=== PATIENT | male | born 1955 | race Caucasian/White ===

== ENCOUNTER 2018-03-15 09:47 | Inpatient (IN) | payer MEDICAID ==
[~2018-03-15] VITALS: Ht 172.7 cm; Wt 95.3 kg
[2018-03-15 09:48] VITALS: BP 218/88
[2018-03-15] MEDS ORDERED: APAP650 PO (09:55)
[2018-03-15] MEDS ORDERED: ASPIRIN325 PO (09:56)
[2018-03-15] MEDS ORDERED: ATENOLOL 50MG T50 M1 PO (09:56)
[2018-03-15] MEDS ORDERED: LIPITOR40 MG PO (09:56)
[2018-03-15] MEDS ORDERED: COLACE100 MG PO (09:57)
[2018-03-15] MEDS ORDERED: PLAVIX 75 MG TA75 M1 PO (09:57)
[2018-03-15] MEDS ORDERED: IMDUR 60 MG TAB60 M1 PO (09:58)
[2018-03-15] MEDS ORDERED: LISINOPRIL20 MG PO (09:58)
[2018-03-15] MEDS ORDERED: CYMBALTA30 MG PO (09:58)
[2018-03-15 11:16] LABS: ABSOLUTE BASOPHILS 0.2 thou/uL (0.0-0.2); ABSOLUTE EOSINOPHILS 0.1 thou/uL (0.0-0.7); ABSOLUTE LYMPHOCYTES 2.5 thou/uL (0.8-5.3); ABSOLUTE MONOCYTES 0.6 thou/uL (0.0-1.2); ABSOLUTE NEUTROPHILS 8.5 thou/uL (1.6-8.1); BASOPHILS 1.3 %; EOSINOPHILS 1.1 %; HEMATOCRIT 42.8 % (42.0-52.0); HEMOGLOBIN 14.4 gm/dL (14.0-18.0); LYMPHOCYTES 20.9 %; MCH 28.1 pg (26.0-34.0); MCHC 33.6 g/dL (28.0-37.0); MCV 83.5 fL (80.0-100.0); MONOCYTES 5.3 %; MPV 7.6 fl. (7.2-11.1); NUCLEATED RBCS 0 /100WBC; PLATELET COUNT* 326 thou/uL (150-400); POLYS 71.4 %; RBC 5.13 mil/uL (4.50-6.00); RDW-CV 14.8 % (10.5-14.5)
[2018-03-15 11:26] LABS: ANION GAP 8 mmol/L (7-16); BUN 16 mg/dL (7-18); CALCIUM 8.7 mg/dL (8.5-10.1); CHLORIDE 105 mmol/L (98-107); CO2 30 mmol/L (21-32); CREATININE 0.8 mg/dL (0.6-1.3); GLUCOSE 99 mg/dL (70-99); POTASSIUM 3.8 mmol/L (3.5-5.1); SODIUM 143 mmol/L (136-145)
[2018-03-15 11:37] LABS: ALBUMIN 3.1 g/dL (3.4-5.0); ALKALINE PHOSPHATASE 75 U/L (46-116); NT-PRO BRAIN NAT PEPTIDE 613 pg/mL (<300); SGOT 16 U/L (15-37); SGPT 31 U/L (30-65); TOTAL BILIRUBIN 0.5 mg/dL (<0.1-1.0); TOTAL PROTEIN 7.7 g/dL (6.4-8.2); TROPONIN-I LEVEL <0.06 ng/mL (<0.06)
[2018-03-15 12:49] LABS: URINE BILIRUBIN NEGATIVE (Negative); URINE BLOOD NEGATIVE (Negative); URINE CLARITY CLEAR; URINE COLOR YELLOW; URINE GLUCOSE-RANDOM NEGATIVE (Negative); URINE KETONES NEGATIVE (Negative); URINE LEUKOCYTES-REFLEX NEGATIVE (Negative); URINE NITRITE-REFLEX NEGATIVE (Negative); URINE PROTEIN NEGATIVE (Negative); URINE UROBILINOGEN 0.2 E.U./dl (0.2-1.0)
[2018-03-15 12:53] LABS: AMP/METHAMP Negative (Negative); BARBITURATES Negative (Negative); BENZODIAZEPINES Negative (Negative); COCAINE Negative (Negative); METHADONE Negative (Negative); OPIATES Negative (Negative); PCP Negative (Negative); THC POSITIVE (Negative)
[2018-03-15 14:00] VITALS: BP 128/70
[2018-03-15 14:10] VITALS: BP 154/84
[2018-03-15 20:00] VITALS: BP 125/71
[2018-03-16] VITALS: BP 148/85
[2018-03-16 04:00] VITALS: BP 137/71
[2018-03-16 07:55] VITALS: BP 141/74
[2018-03-16 08:15] LABS: HEMATOCRIT 38.5 % (42.0-52.0); HEMOGLOBIN 12.8 gm/dL (14.0-18.0); MCH 27.9 pg (26.0-34.0); MCHC 33.2 g/dL (28.0-37.0); MPV 7.5 fl. (7.2-11.1); RBC 4.58 mil/uL (4.50-6.00); RDW-CV 14.7 % (10.5-14.5); WBC 12.4 thou/uL (4.0-11.0)
[2018-03-16 08:18] LABS: ALBUMIN 2.6 g/dL (3.4-5.0); CALCIUM 8.3 mg/dL (8.5-10.1); CREATININE 0.8 mg/dL (0.6-1.3); POTASSIUM 3.8 mmol/L (3.5-5.1); TOTAL BILIRUBIN 0.7 mg/dL (<0.1-1.0); TOTAL PROTEIN 6.5 g/dL (6.4-8.2)
--- NOTE | 2018-03-16 15:52 | EKG ---
[place] [address] ELECTROCARDIOGRAM REPORT Name: KRYSTIAN ALEXANDRE Room: [address] IN [facility].#: [id number] Admission: 03/15/18 Attend Phys: Diony Burgess, Discharge: Date of : 57 Report #: [id number] THIS REPORT FOR: //name// [facility] ED Test Date: 2018-03-15 Test Time: 09:53:35 Pat Name: KRYSTIAN ALEXANDRE Department: Room: Gender: [employer] Instructor: Demetria OROSCO : 1955 Requested By: Anisha Lemus Order Number: [id number] MD: Oscar Kamara Measurements Intervals [place] Rate: 53 P: 3 OK: 173 QRS: -42 QRSD: 112 T: 150 QT: 460 QTc: 432 Interpretive Statements Sinus rhythm Abnormal R-wave progression, late transition Nonspecific T-wave abnormality No previous ECG available for comparison Electronically Signed On 03-16-2018 15:52:03 CDT by Oscar Kamara [email or web address] <ELECTRONICALLY SIGNED> By: Oscar Kamara MD, [facility] 03/16/18 [id number] Oscar Kamara MD, [facility] /EPI
[2018-03-16 16:00] VITALS: BP 152/75
[2018-03-16 20:15] VITALS: BP 151/86
[2018-03-17] VITALS: BP 170/78
[2018-03-17 03:31] VITALS: BP 170/82
[2018-03-17 08:00] VITALS: BP 186/98
[2018-03-17 11:00] VITALS: BP 149/90
[2018-03-17 20:09] VITALS: BP 160/75
--- NOTE | 2018-03-17 20:24 | CON ---
[address] [address] CONSULTATION Name: KRYSTIAN ALEXANDRE Room: [address] [place] [id number] Admission: 03/15/18 Attend Phys: Diony Burgess, Discharge: Date of : 57 Report #: [id number] THIS REPORT FOR: //name// CC: LUCY physician/PCP Diony Burgess DATE OF SERVICE: 03/16/2018 HISTORY OF PRESENT ILLNESS: This is a 62-year-old male patient who had a prior history of stroke. Rest of the history is not clear. He said he was not feeling well, that is why he was admitted to the hospital. The record indicates that he had some chest congestion, shortness of breath, dizziness for which he was admitted. He does not know why he was admitted. He does not think he had a stroke. He did have a stroke in the past. Apparently, his symptoms were severe, but he has calmed down since that. Symptoms happened spontaneously without any trauma. He lives with his daughter and daughter is not available. REVIEW OF SYSTEMS: Indicate that he had strokes. He said [facility] had stroke. He indicates he had multiple strokes. He said he was in the custodial and they did the workup. He does not know what workup was done. I do not know what the etiology of his stroke was. When he came in, he was hypertensive. He indicates he had some nausea, vomiting, but he does not describe anything more than that. I carried out the 14-point review of system in this patient. He complaining of some chest congestion. He had some COPD. He has a history of chronic pain. He has a history of anemia. He is on Plavix. He does not think that he has any new eye, ENT, , musculoskeletal, constitutional, dermatological, hematological, throat, allergic symptom associated with these symptoms. He does have a history of depression. PAST MEDICAL HISTORY: Positive for stroke. FAMILY HISTORY: Negative. He does not think anybody had stroke in early age. SOCIAL HISTORY: He lives with his daughter. Daughter is not available. PHYSICAL EXAMINATION: Indicate he is alert. He is responsive. He could not tell me what month it is. His speech looks okay. His memory and fund of knowledge is diminished. Cranial nerve examination 2-12 indicates that he has some vision problem. I could not specify. He has had this going on since stroke. He does appear to have weakness on the left side of the face. His neuromuscular examinations indicate that he is pretty significantly weak on the left side. He is hyporeflexic there, but he says he can feel the touch there may be somewhat increased there. On the right side, he does not appear to have any cerebellar sign. I tried to look at the patient's fundus. He did not cooperate. He is reasonably good, well-developed individual who does not have any dysmorphic features of eyes, ears and face. [place] [address] CONSULTATION Name: KRYSTIAN ALEXANDRE Room: [address] IN [facility].#: [id number] Admission: 03/15/18 Attend Phys: Diony Burgess, Discharge: Date of : 57 Report #: [id number] adequate. His pulses are difficult to feel. He has no edema, cyanosis or jaundice. His cardiac examinations appear noncontributory. He does have some rhonchi, but no marked respiratory difficulty. His blood pressure is 137/71. It was much higher when he came in. Respiration is 21, pulse is 55, temperature is 97.7. He did have an MRI of the brain that showed occipital lobe infarct and in fact he had multiple infarcts in the brain. IMPRESSION: 1. Status post multiple infarcts. 2. No new infarct. 3. Present symptomatology was probably because of encephalopathy as well as systemic problem, but he needs workup for the stroke. RECOMMENDATIONS: 1. We will get an MRA. 2. We will get an echocardiogram. 3. We will get an EEG. 4. Main management is going to be management of his systemic problems and you may also consider psychiatric consult in this patient. Thank you very much for this referral. <ELECTRONICALLY SIGNED> By: Scott Rich MD 03/17/182023 0824 1100Scott Rich MD /nt
--- NOTE | 2018-03-17 20:24 | EEG ---
[address] [address] EEG STUDY REPORT Name: KRYSTIAN ALEXANDRE Room: [address] IN [place]#: [id number] Admission: 03/15/18 Attend Phys: Diony Burgess, Discharge: Date of : 57 Report #: [id number] THIS REPORT FOR: //name// CC: LUCY physician/PCP Diony Burgess DATE OF SERVICE: 03/16/2018 This patient is being evaluated for dizziness. EEG is being done to evaluate the possibility of seizure. EEG was done by placing the electrode from standard 10-20 system of electrode placement. Both referential and sequential montages were used for recording. Background activity in this patient's EEG is about 9 Hz and 30 microvolt. It is intermixed with theta range slowing on both sides. Photic stimulation was unremarkable. This patient went to sleep and that is associated with bilateral slowing and vertex sharp waves. Throughout the record, no active epileptiform activity was noticed. IMPRESSION: This patient's EEG is intermixed with some theta range slowing on both sides. However, no active epileptiform activity was noticed. This finding is nonspecific and that can occur with encephalopathy, effect of psychotropic medication, dementia, etc. Clinical correlation is recommended. <ELECTRONICALLY SIGNED> By: Scott Rich MD 03/17/18 2024 0914 [id number] ce Robison
[2018-03-18] VITALS: BP 140/76
[2018-03-18 03:40] VITALS: BP 167/78
[2018-03-18 08:00] VITALS: BP 130/53
[2018-03-18] MEDS ORDERED: COLACE100 MG PO (09:13)
[2018-03-18] MEDS ORDERED: VENTOLIN HFA 1818 GM INH (09:13)
[2018-03-18] MEDS ORDERED: ATENOLOL 50MG T50 M1 PO (09:13)
[2018-03-18] MEDS ORDERED: LISINOPRIL20 MG PO (09:13)
[2018-03-18] MEDS ORDERED: PLAVIX 75 MG TA75 M1 PO (09:13)
[2018-03-18] MEDS ORDERED: IMDUR 60 MG TAB60 M1 PO (09:13)
[2018-03-18] MEDS ORDERED: ASPIR 8181 MG PO (09:13)
[2018-03-18] MEDS ORDERED: LIPITOR40 MG PO (09:13)
[2018-03-18] MEDS ORDERED: CYMBALTA30 MG PO (09:13)
[2018-03-18 11:00] VITALS: BP 152/76
--- NOTE | 2018-03-18 14:15 | 2DMMODE ---
[place] [address] 2 D/M-MODE ECHOCARDIOGRAM Name: KRYSTIAN ALEXANDRE Room: [address] IN [facility]#: [id number] Admission: 03/15/18 Attend Phys: Diony Tejeda Discharge: Date of : 57 Date of Service: 03/18/18 1414 Report #: [id number] THIS REPORT FOR: //name// APPROVED REPORT Study performed: 03/18/2018 12:19:47 EXAM: Comprehensive 2D, Doppler, and color-flow Echocardiogram Patient Location: In-Patient Room #: [facility] Status: routine BSA: 2.11 HR: 56 bpm BP: 130/53 mmHg Rhythm: NSR Other Information Study Quality: Adequate Indications CVA/TIA Dyspnea Echo Enhancing Agent Indication: Rule out Shunt Agent(s) / Amount(s) Used: Agitated Saline 10 cc 2D Dimensions LVEF(%): 75.69 (>50%) IVSd: 14.38 (7-11mm) LVOT Diam: 22.66 (18-24mm) LVDd: 59.62 mm PWd: 11.81 (7-11mm) Ascending Ao: 37.88 (22-36mm) LVDs: 32.69 (25-40mm) Aortic Root: 43.02 mm Lackey's LVEF: 75.69 % Volumes Left Atrial Volume (Systole) LA ESV Index: 35.70 mL/m2 Aortic Valve AoV Peak Wander.: 1.23 m/s AO Peak Gr.: 6.10 mmHg LVOT Max P.56 mmHg AO Mean Gr.: 3.26 mmHg LVOT Mean P.33 mmHg LVOT Max V: 0.94 m/[place] [address] 2 D/M-MODE ECHOCARDIOGRAM Name: KRYSTIAN ALEXANDRE Room: [address] IN [place].#: [id number] Admission: 03/15/18 Attend Phys: Diony Tejeda Discharge: Date of : 57 Date of Service: 03/18/18 1414 Report #: [id number] AO V2 VTI: 22.33 cm LVOT Mean V: 0.51 m/s CHARLETTE (VTI): 3.21 cm2 LVOT V1 VTI: 17.77 cm AI [place]: 1.46 m/s2 AI PHT: 572.15 ms Mitral Valve E/A Ratio: 0.56 MV Decel. Time: 284.44 ms MV E Max Wander.: 0.50 m/s MV PHT: 82.49 ms MVA (PHT): 2.67 cm2 TDI E/Lateral E': 12.50 E/Medial E': 6.25 Medial E' Wander.: 0.08 m/s Lateral E' Wander.: 0.04 m/s Left Ventricle The left ventricle is normal size. There is normal LV segmental wall motion. Mild concentric left ventricular hypertrophy. Left ventricular systolic function is normal. LVEF is 55-60%. Grade I - abnormal relaxation pattern. Right Ventricle The right ventricle is normal size. The right ventricular systolic function is normal. Atria Left atrium is at the upper limits of normal. Interatrial septum is intact without evidence of ASD or PFO. The right atrium size is normal. Aortic Valve The aortic valve is normal in structure. Trace aortic regurgitation. There is no aortic valvular stenosis. Mitral Valve The mitral valve is normal in structure. Trace mitral regurgitation. No evidence of mitral valve stenosis. Tricuspid Valve The tricuspid valve is normal in structure. Unable to assess PA pressure. Trace tricuspid regurgitation. Pulmonic Valve The pulmonary valve is normal in structure. [place] [address] 2 D/M-MODE ECHOCARDIOGRAM Name: KRYSTIAN ALEXANDRE Room: [address] IN ..#: [id number] Admission: 03/15/18 Attend Phys: Diony Tejeda Discharge: Date of : 57 Date of Service: 03/18/18 1414 Report #: [id number] valvular regurgitation. Great Vessels The aortic root is normal in size. IVC is normal in size and collapses with >50% inspiration Pericardium There is no pericardial effusion. <Conclusion> The left ventricle is normal size. Mild concentric left ventricular hypertrophy. Left ventricular systolic function is normal. LVEF is 55-60%. Grade I - abnormal relaxation pattern. Trace aortic regurgitation. Trace mitral regurgitation. Interatrial septum is intact without evidence of ASD or PFO. <ELECTRONICALLY SIGNED> By: Oscar Kamara MD, [facility] 03/18/18 [phone] Oscar Kamara MD, FACC /INF
[2018-03-18 15:19] VITALS: BP 152/76
[2018-03-18 16:00] VITALS: BP 125/74
--- NOTE | 2018-03-19 12:42 | CON ---
[address] [address] CONSULTATION Name: KRYSTIAN ALEXANDRE Room: [address] IN [place].#: [id number] Admission: 03/15/18 Attend Phys: Diony Burgess, Discharge: 03/18/18 Date of : 57 Report #: [id number] THIS REPORT FOR: //name// CC: LUCY physician/PCP Diony Burgess REASON FOR CONSULTATION AND HISTORY OF PRESENT ILLNESS: Evaluation and recommendations regarding post-acute rehabilitation in a male admitted with chest congestion, shortness of breath, dizziness and intractable pain. He does have a history of stroke with the most recent being 8 months ago with left-sided deficits. Previous level of function was modified independent to independent with activities of daily living. Currently, there are no data notes on PT, OT or speech language pathology, those are pending. ALLERGIES: SHELLFISH AND BEES. PAST MEDICAL HISTORY: Back pain, dizziness, shortness of breath and vomiting. Laboratories and medications were reviewed. PHYSICAL EXAMINATION: GENERAL: Alert, oriented, no apparent distress. VITAL SIGNS: Reviewed and are stable. HEENT: Head atraumatic, normocephalic. Pupils equal, round, reactive. ABDOMEN: Soft, nontender, nondistended. NEUROLOGIC: Cranial nerves 2-12 are grossly intact. No focal neuro deficits. PT and OT or previous level of function was modified. ASSESSMENT: 1. Acute hypoxic respiratory failure. 2. History of a cerebrovascular accident with left-sided deficits. 3. Hypertension. 4. Chronic pain. 5. Hypertensive urgency. 6. Chronic obstructive pulmonary disease. 7. Intractable emesis, dizziness and atelectasis. PLAN: 1. PT, OT have been consulted. We will await to see what further deficits he has. 2. We will follow. [address] [address] CONSULTATION Name: BALDOMEROSHIVKRYSTIAN Room: [address]#: [id number] Admission: 03/15/18 Attend Phys: Diony Burgess, Discharge: 03/18/18 Date of : 57 Report #: [id number] Thanks for the consultation. <ELECTRONICALLY SIGNED> By: Bernadette Diaz DO 03/19/18 1242 1456 [id number] Diaz DO /nt
== END 2018-03-18 17:55 | disposition home or self-care (01) | DRG 189 ==
LOC: M.ERS 09:47 → EDBD 12:57 → M.TBA-ER 12:57 → M.2W 12:57
PROVIDERS: Personal Emergency Response Attendant; ADMIT Family Medicine
DX: J96.01 Acute respiratory failure with hypoxia (principal); E44.1 Mild protein-calorie malnutrition; J44.1 Chronic obstructive pulmonary disease with (acute) exacerbation; I10 Essential (primary) hypertension; M54.9 Dorsalgia, unspecified; I16.0 Hypertensive urgency; R11.10 Vomiting, unspecified; F03.90 Unspecified dementia, unspecified severity, without behavioral disturbance, psychotic disturbance, mood disturbance, and anxiety; G89.4 Chronic pain syndrome; H54.7 Unspecified visual loss; Z86.73 Personal history of transient ischemic attack (TIA), and cerebral infarction without residual deficits; Z79.899 Other long term (current) drug therapy; Z79.82 Long term (current) use of aspirin; Z91.030 Bee allergy status; Z91.013 Allergy to seafood; Z68.31 Body mass index [BMI] 31.0-31.9, adult